=== PATIENT | female | born 1965 | race African-American/Black ===

== ENCOUNTER 2019-11-29 18:32 | Emergency (ER) | payer OTHER ==
[~2019-11-29] VITALS: Ht 177.8 cm; Wt 81.6 kg
--- NOTE | 2019-11-29 18:55 | NUR ---
marked the perimeter of the redness area on the left arm per order
--- NOTE | 2019-11-29 19:00 | NUR ---
Patient discharged to home in stable condition. Written and verbal after care instructions given. Patient verbalizes understanding of instructions. Stressed follow up or return to ER for worsening s/s.
== END 2019-11-29 19:03 | disposition home or self-care (01) ==
LOC: ER 18:33
DX: S50.862A Insect bite (nonvenomous) of left forearm, initial encounter (principal); L03.114 Cellulitis of left upper limb; W57.XXXA Bitten or stung by nonvenomous insect and other nonvenomous arthropods, initial encounter; Y93.9 Activity, unspecified; Y92.89 Other specified places as the place of occurrence of the external cause
CPT/HCPCS: A4663

== ENCOUNTER 2021-05-06 22:56 | Emergency (ER) | payer BC, MEDICAID ==
[~2021-05-06] VITALS: Ht 170.2 cm; Wt 77.1 kg
--- NOTE | 2021-05-07 00:30 | NUR ---
Dr. Burciaga at bedside for MSE.
[2021-05-07] MEDS ORDERED: HYDR-500 PO (00:40)
[2021-05-07] MEDS ORDERED: ACYC-108 PO (00:40)
[2021-05-07] MEDS ORDERED: hydrOXYzine HCL 25 MG TABLET PO ONE (00:45)
[2021-05-07] MEDS ORDERED: ACYCLOVIR 400 MG TABLET PO ONE (00:45)
[2021-05-07] MEDS ORDERED: ACYCLOVIR 200 MG CAPSULE ONE (00:53)
[2021-05-07] MEDS ORDERED: hydrOXYzine HCL 25 MG TABLET ONE (00:53)
--- NOTE | 2021-05-07 00:53 | NUR ---
Patient discharged to home in stable condition. Written and verbal after care instructions given. Patient verbalizes understanding of instructions. Stressed follow up or return to ER for worsening s/s. Patient out of ER with steady gait, no acute signs of distress, VSS, all belongings taken.
[2021-05-07 00:54] VITALS: BP 130/75
== END 2021-05-07 00:55 | disposition home or self-care (01) ==
LOC: ER 22:57
DX: B02.9 Zoster without complications (principal); Z90.710 Acquired absence of both cervix and uterus; Z79.899 Other long term (current) drug therapy
CPT/HCPCS: A4663